=== PATIENT | female | born 1995 | race Caucasian/White ===

== ENCOUNTER 2016-11-15 22:52 | Emergency (ER) | payer OTHER ==
[2016-11-15 23:35] VITALS: BP 133/85
== END 2016-11-15 23:35 | disposition home or self-care (01) ==
LOC: ED 22:52
DX: O26.891 Other specified pregnancy related conditions, first trimester (principal); R51 Headache; Z3A.09 9 weeks gestation of pregnancy; Z88.6 Allergy status to analgesic agent

== ENCOUNTER 2018-08-19 20:19 | Emergency (ER) | payer MEDICAID ==
[~2018-08-19] VITALS: Ht 170.2 cm; Wt 110.2 kg
[2018-08-19 20:27] VITALS: BP 119/67; Ht 170.2 cm; Wt 110.2 kg
[2018-08-19 21:09] LABS: BASOPHIL % 0.4 % (0-2); PLATELET COUNT 203 x10^3mcL (130-400); RED CELL DISTRIBUTION WIDTH 14.3 % (11.5-14.5)
== END 2018-08-19 23:30 | disposition home or self-care (01) ==
LOC: ED 20:19
PROVIDERS: Emergency Medicine
DX: O20.0 Threatened abortion (principal); O99.342 Other mental disorders complicating pregnancy, second trimester; Z3A.16 16 weeks gestation of pregnancy; Z88.8 Allergy status to other drugs, medicaments and biological substances; Z98.890 Other specified postprocedural states
CPT/HCPCS: 36415

== ENCOUNTER 2018-08-23 12:23 | Emergency (ER) | payer MEDICAID ==
[~2018-08-23] VITALS: Ht 170.2 cm; Wt 107.0 kg
[2018-08-23 12:53] VITALS: Ht 170.2 cm; Wt 107.0 kg
[2018-08-23 14:29] VITALS: BP 143/81
== END 2018-08-23 14:29 | disposition home or self-care (01) ==
LOC: ED 12:23
DX: O99.342 Other mental disorders complicating pregnancy, second trimester (principal); O9A.212 Injury, poisoning and certain other consequences of external causes complicating pregnancy, second trimester; F07.81 Postconcussional syndrome; S00.412D Abrasion of left ear, subsequent encounter; F32.9 Major depressive disorder, single episode, unspecified; Z88.8 Allergy status to other drugs, medicaments and biological substances; Z98.890 Other specified postprocedural states; Z3A.17 17 weeks gestation of pregnancy; Y04.0XXA Assault by unarmed brawl or fight, initial encounter; Y93.89 Activity, other specified; Y92.89 Other specified places as the place of occurrence of the external cause; Y99.8 Other external cause status